=== PATIENT | male | born 1975 | race Two or more races ===

== ENCOUNTER 2019-10-17 23:15 | Emergency (ER) | payer BC ==
[~2019-10-17] VITALS: Ht 162.6 cm; Wt 83.9 kg
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
--- NOTE | 2019-10-17 23:48 | NUR ---
ARABELLA AT [facility] FOR XRAY
[2019-10-18] MEDS ORDERED: HYDROCODONE/APAP 5/325MG 1 EACH TABLET ONE (00:17)
[2019-10-18] MEDS: HYDROCODONE/APAP 5/325MG 1 EACH TABLET PO ONE (00:20)
[2019-10-18 00:50] VITALS: BP 122/71
--- NOTE | 2019-10-18 00:50 | NUR ---
Patient discharged to home in stable condition. Written and verbal after care instructions given. Patient verbalizes understanding of instruction.
== END 2019-10-18 00:50 | disposition home or self-care (01) ==
LOC: ER 23:15
DX: S82.65XA Nondisplaced fracture of lateral malleolus of left fibula, initial encounter for closed fracture (principal); Z98.890 Other specified postprocedural states; W05.2XXA Fall from non-moving motorized mobility scooter, initial encounter; Y93.55 Activity, bike riding; Y92.89 Other specified places as the place of occurrence of the external cause; Y99.8 Other external cause status
CPT/HCPCS: 73610-TC